=== PATIENT | male | born 1955 | race Caucasian/White ===

== ENCOUNTER 2017-07-06 16:54 | Emergency (ER) | payer OTHER ==
[2017-07-06] MEDS ORDERED: Aspirin TAB* 325 MG PO ONE (18:19)
[2017-07-06] MEDS ORDERED: Nitroglycerin TAB 0.4 MG* 0.4 MG TAB SL ONE (18:20)
[2017-07-06] MEDS ORDERED: Albuterol/Ipratropium NEB.SOL* Albuterol 2.5 MG/Ipratropium 0.5 MG 3 ML INH ONE (18:20)
[2017-07-06] MEDS ORDERED: methylPREDNISolone 125 MG* 2 ML VIAL IV ONE (18:20)
--- NOTE | 2017-07-06 19:10 | RAD ---
INDICATION: Cough. LEFT side chest pain. Just finished antibiotics for bronchitis and early pneumonia. COMPARISON: January 19, 2005 TECHNIQUE: Dual energy PA and routine lateral views of the chest were obtained. REPORT: Both diffuse mild prominence of the interstitial markings and patchy rarefaction of the mid to upper lung zone interstitial markings. No focal pulmonary lesion, compelling alveolar consolidation, pleural effusion, pneumothorax. The heart, pulmonary vasculature, and mediastinal contours are unremarkable. No LEFT rib fracture evident. IMPRESSION: Stigmata of potential chronic obstructive pulmonary disease and emphysema. No acute cardiopulmonary process evident.
[2017-07-06 20:02] LABS: Hematocrit 38 % (42-52); Mean Corpuscular HGB Conc 34 g/dl (31-36); Mean Corpuscular Hemoglobin 34 pg (27-31); Mean Corpuscular Volume 101 fL (80-94); Mean Platelet Volume 7 um3 (7.4-10.4); Red Blood Count 3.82 10^6/ul (4.0-5.4); Red Cell Distribution Width 13 % (10.5-15); White Blood Count 10.1 10^3/ul (3.5-10.8)
[2017-07-06 20:19] LABS: Albumin 3.9 g/dL (3.2-5.2); BUN/Creatinine Ratio 14.4 (8-20); Calcium 9.5 mg/dL (8.6-10.3); EGFR African American 93.7 (>60); EGFR Non-African American 72.8 (>60); Globulin 3.4 g/dL (2-4); Potassium 3.9 mmol/L (3.5-5.0); Total Bilirubin 0.5 mg/dL (0.2-1.0); Total Protein 7.3 g/dL (6.4-8.9)
[2017-07-06] MEDS ORDERED: Iohexol 350* (CONTRAST) 500 ML MDV IV ONE (20:42)
--- NOTE | 2017-07-06 21:50 | RAD ---
INDICATION: Chest pain, shortness of breath. Elevated d-dimer. COMPARISON: July 06, 2017 chest radiograph. TECHNIQUE: Multidetector CT images were obtained from the lung apices to the upper abdomen with 84 mL Omnipaque 350 IV contrast. Pulmonary angiogram protocol. Multiplanar reformation including with maximum intensity projection. REPORT: Mild bilateral mid to lower lung zone patchy consolidation most confluent at the anterior and medial basilar segments of the RIGHT lower lobe. Negative for pleural effusions. Negative for pneumothorax. 1.3 cm short axis diameter mildly enlarged subcarinal lymph node. Negative for cardiomegaly. Physiologic small volume of pericardial fluid. Normal diameter thoracic aorta without appreciable atherosclerotic plaque or evidence for dissection. Respiratory motion artifact mildly degrades diagnostic quality of the CT pulmonary angiogram. Nonetheless no compelling filling defects are identified from the main through the segmental and subsegmental pulmonary arteries to indicate pulmonary embolism. Unremarkable Limited images through the upper abdomen. Negative for suspicious thoracic osseous lesions. IMPRESSION: 1. No evidence for pulmonary embolism. 2. Bronchopneumonia. Negative for pleural effusions. 3. Mildly enlarged subcarinal lymph node may be reactive.
[2017-07-07 03:28] VITALS: BP 137/81
--- NOTE | 2017-07-11 12:02 | ED ---
Christiano Brand Alfonso scribed for Eddi Buckley MD on 07/06/17 at 1817 . Shortness of Breath - HPI Summary HPI Summary: This patient is a 61 year old M presenting to [facility] with a chief complaint of SOB since 2 days ago. The patient rates the pain 0/10 in severity. Symptoms aggravated by deep breaths. Symptoms alleviated by nothing. Patient reports CP ( left sided tightness since 1000 today), productive coughing (dark yellow phlegm and worse at night), body aches, weight loss, insomnia, headache, and tiredness. He sleeps on 3 large pillows each night. He recently completed z-pierce for "bronchitis and early pneumonia" and returned to work today. - History of Current Complaint Chief Complaint: EDShortnessOfBreath Time Seen by Provider: 07/06/17 18:09 Hx Obtained From: Patient Onset/Duration: Sudden Onset, Lasting Days - 2, Still Present Timing: Constant Current Severity: Moderate Aggrevating Factors: Deep Breaths Alleviating Factors: Nothing Associated Signs & Symptoms: Cough (Productive), Chest Pain w/Cough - Allergy/Home Medications Allergies/Adverse Reactions: Allergies Allergy/AdvReac Type Severity Reaction Status Date / Time Levofloxacin [From Levaquin] Allergy Rash Verified 08/28/15 08:45 Moxifloxacin [From Avelox] Allergy Rash And Verified 08/28/15 08:45 Itching PMH/Surg Hx/FS Hx/Imm Hx Cardiovascular History: Denies: Hx Pacemaker/ICD Sensory History: Denies: Hx Hearing Aid Opthamlomology History: Denies: Hx Legally Blind Psychiatric History: Denies: Hx Panic Disorder - Cancer History Cancer Type, Location and Year: MELANOMA REMOVED FROM LEFT SIDE OF FACE, BACK AND CHEST 09/14 - Surgical History Surgery Procedure, Year, and Place: wisdom teeth, nose sinus surgeries, bilateral hip replacements 2010 and 2012,thumb surgery 20 yrs ago,hernia repair 5 yrs ago Infectious Disease History: Denies: Traveled Outside the [place] in Last 30 Days - Family History Known Family History: Positive: Cardiac Disease - Social History Alcohol Use: None Substance Use Type: Reports: None Smoking Status (MU): Former Smoker - Quit approx. 10 years ago. Review of Systems Negative: Fever, Chills Negative: Erythema Negative: Sore Throat Positive: Chest Pain Positive: Shortness Of Breath, Cough Negative: Abdominal Pain, Vomiting, Nausea Negative: dysuria, hematuria Positive: Myalgia, Other - body aches, weight loss. Negative: Edema Negative: Rash Neurological: Other - insomnia, headache, and tiredness; negative dizziness All Other Systems Reviewed And Are Negative: Yes Physical Exam Triage Information Reviewed: Yes Vital Signs On Initial Exam: Initial Vitals Temp Pulse Resp BP Pulse Ox 97.1 F 88 20 128/90 98 07/06/17 17:04 07/06/17 17:04 07/06/17 17:04 07/06/17 17:04 07/06/17 17:04 Vital Signs Reviewed: Yes Appearance: Positive: Well-Appearing, No Pain Distress, Well-Nourished Skin: Positive: Warm, Dry Eyes: Positive: Conjunctiva Clear ENT: Positive: Normal ENT inspection Neck: Positive: Other: - Musculoskeletal ROM normal neck. (-) JVD, (-) Stridor, (-) Tracheal deviation Lymph: (-) Cervical adenopathy Respiratory/Lung Sounds: Positive: Other - Crackles bibasilar. Effort normal. (- ) Respiratory distress. Cardiovascular: Positive: Other - Rhythm regular, rate normal, Heart sounds normal; Intact distal pulses; The pedal pulses are 2+ and symmetric. Radial pulses are 2+ and symmetric. (-) Murmur Abdomen Description: Positive: Other: - Soft, (-) Tenderness, (-) Distension, (- ) Guarding, (-) Rebound Musculoskeletal: Positive: Other - No reproducible chest tenderness. Negative: Edema Left, Edema Right Neurological: Positive: Alert, Oriented to Person Place, Time Psychiatric: Positive: Affect/Mood Appropriate Diagnostics - Vital Signs Vital Signs Temp Pulse Resp BP Pulse Ox 07/06/17 17:04 97.1 F 88 20 128/90 98 - Laboratory Result Diagrams: 07/06/17 19:50 07/06/17 19:50 Lab Statement: Any lab studies that have been ordered have been reviewed, and results considered in the medical decision making process. - Radiology CXR Radiology Interpretation Completed By: Radiologist - Stigmata of potential chronic obstructive pulmonary disease and emphysema. No acute cardiopulmonary process evident. ED physician has reviewed this radiology report and agrees. - CT CTA Chest CT Interpretation Completed By: Radiologist - 1. No evidence for pulmonary embolism. 2. Bronchopneumonia. Negative for pleural effusions. 3. Mildly enlarged subcarinal lymph node may be reactive. ED physician has reviewed this radiology report and agrees. - EKG 1722 Cardiac Rate: NL - BPM 74 EKG Rhythm: Sinus Rhythm EKG Interpretation: No STEMI Re-Evaluation - Re-Evaluation First Eval Re-Evaluation Time: 22:14 Change: Improved Comment: Chest pain resolved. Lungs clear. Course/Dx - Course Assessment/Plan: This patient is a 61 year old M presenting to [facility] with a chief complaint of SOB since 2 days ago. The patient rates the pain 0/10 in severity. Symptoms aggravated by deep breaths. Symptoms alleviated by nothing. Patient reports CP (left sided tightness since 1000 today), productive coughing (dark yellow phlegm and worse at night), body aches, weight loss, insomnia, headache, and tiredness. He sleeps on 3 large pillows each night. He recently completed z-pierce for "bronchitis and early pneumonia" and returned to work today. An EKG reveals NSR. CXR reveals Stigmata of potential chronic obstructive pulmonary disease and emphysema. No acute cardiopulmonary process evident. ED physician has reviewed this radiology report and agrees. Patient will be discharged with prescriptions and follow up from PCP. The patient is agreeable with this plan. - Diagnoses Provider Diagnoses: Bronchitis, Chest wall pain Discharge - Discharge Plan Condition: Stable Disposition: HOME Prescriptions: Albuterol HFA INHALER* [Ventolin HFA Inhaler*] 1 - 2 puff INH Q4H PRN #1 mdi PRN Reason: Cough guaiFENesin/CODIEN 100MG-10MG* [Robitussin AC 100Mg-10Mg*] 5 - 10 ml PO BEDTIME PRN #50 ml MDD 10 PRN Reason: Cough predniSONE TAB* [Deltasone TAB*] 50 mg PO DAILY #5 tab Patient Education Materials: Acute Bronchitis (ED), Chest Wall Pain (ED) Referrals: Neyda Friedman MD [Primary Care Provider] - 3 Days The documentation as recorded by the Christiano rodas Alfonso accurately reflects the service I personally performed and the decisions made by , Eddi Buckley MD.
== END 2017-07-07 00:30 | disposition home or self-care (01) ==
LOC: ED 16:54
DX: R07.9 Chest pain, unspecified (principal); R05 Cough; R63.4 Abnormal weight loss; Z87.891 Personal history of nicotine dependence; J40 Bronchitis, not specified as acute or chronic; R07.89 Other chest pain
CPT/HCPCS: 36415; 71020; 71275; 80053; 83605; 84484; 85025; 85379; 87040; 93005; 94640; 96374; 99283; A9270-GY; J2930; Q9967

== ENCOUNTER 2018-05-21 10:02 | Emergency (ER) | payer OTHER ==
[2018-05-21] MEDS ORDERED: NS 0.9% 1000 ML* 1,000 ML IV ONE (10:27)
[2018-05-21] MEDS ORDERED: Meclizine TAB* 12.5 MG PO ONE (10:27)
[2018-05-21 10:41] LABS: ABS Basophils 0 10^3/ul (0-0.2); ABS Eosinophils 0.3 10^3/ul (0-0.6); ABS Lymphocytes 1.2 10^3/ul (1.0-4.8); ABS Monocytes 0.3 10^3/ul (0-0.8); ABS Neutrophils 4.1 10^3/ul (1.5-7.7); ABS Nucleated RBC 0 10^3/ul; Eosinophil % 4.5 % (0-6); Hematocrit 40 % (42-52); Hemoglobin 13.7 g/dl (14.0-18.0); Lymphocyte % 19.8 % (25-47); Mean Corpuscular HGB Conc 34 g/dl (31-36); Mean Corpuscular Hemoglobin 35 pg (27-31); Mean Corpuscular Volume 100 fL (80-94); Mean Platelet Volume 7.5 um3 (7.4-10.4); Nucleated Red Blood Cells % 0; Platelet Count 221 10^3/ul (150-450); Red Blood Count 3.96 10^6/ul (4.00-5.40); Red Cell Distribution Width 14 % (10.5-15); White Blood Count 5.8 10^3/ul (3.5-10.8)
[2018-05-21 10:58] LABS: EGFR Non-African American 82.6 (>60)
--- NOTE | 2018-05-21 11:13 | ED ---
Dizziness - HPI Summary HPI Summary: This is clark Yusuf documenting for attending Medardo Soto MD. Pt is a 62 y/o male sent from for HTN who presents to [facility] c/o dizziness since yesterday. He states he was straining his eyes at work, which made him dizzy and have double vision. Pt states he was off-balance, couldnt walk straight, and had difficulty driving home. This morning, he woke up with a headache and worsened dizziness. Pt also c/o recent constipation. He denies any CP, SOB, N/V/ D, fever, or chills. PMHx migraines, but states that this is not a migraine. He denies any recent falls, HTN, DM, or HLD. Pt is a former smoker, and consumes alcohol occasionally. - History Of Current Complaint Chief Complaint: EDDizziness Stated Complaint: DIZZINESS,HIGH BP-SENT / STAR Hx Obtained From: Patient Onset/Duration: Still Present Timing: Days - Yesterday Character: Lightheaded, Dizzy Aggravating Factor(s): Other - Eye strain Alleviating Factor(s): Nothing Associated Signs And Symptoms: Positive: Inability to Walk, Other: - Diplopia. Negative: Nausea, Vomiting, Diarrhea, Chest Pain, SOB, Fever, Chills Related History: Similar Episode/Dx as - Migraine - Allergies/Home Medications Allergies/Adverse Reactions: Allergies Allergy/AdvReac Type Severity Reaction Status Date / Time MS Levofloxacin Allergy Rash Verified 08/28/15 08:45 [From Levaquin] MS Moxifloxacin [From Avelox] Allergy Rash And Verified 08/28/15 08:45 Itching PMH/Surg Hx/FS Hx/Imm Hx Cardiovascular History: Denies: Hx Pacemaker/ICD Respiratory History: Denies: Hx Asthma, Hx Chronic Obstructive Pulmonary Disease (COPD) - has had bronchitis before though GI History: Reports: Other GI Disorders - Hital Hernia Musculoskeletal History: Reports: Hx Arthritis Sensory History: Denies: Hx Legally Blind, Hx Hearing Aid Opthamlomology History: Denies: Hx Legally Blind Neurological History: Reports: Hx Migraine Psychiatric History: Denies: Hx Panic Disorder - Cancer History Cancer Type, Location and Year: MELANOMA REMOVED FROM LEFT SIDE OF FACE, BACK AND CHEST 09/14 - Surgical History Surgery Procedure, Year, and Place: wisdom teeth, nose sinus surgeries, bilateral hip replacements 2011 and 2012, thumb surgery 20 yrs ago,hernia repair 5 yrs ago Infectious Disease History: No Infectious Disease History: Denies: Traveled Outside the [place] in Last 30 Days - Family History Known Family History: Positive: Cardiac Disease, Other - CA - prostate, skin - Social History Alcohol Use: Occasionally Substance Use Type: Reports: None Smoking Status (MU): Former Smoker Review of Systems Negative: Fever, Chills Positive: Diplopia Negative: Chest Pain Negative: Shortness Of Breath Negative: Vomiting, Diarrhea, Nausea Neurological: Other - Dizziness, difficulty walking Positive: Headache All Other Systems Reviewed And Are Negative: Yes Physical Exam - Summary Physical Exam Summary: VITAL SIGNS: Reviewed. GENERAL: Patient is a well-developed and nourished MALE who is lying comfortable in the stretcher. Patient is not in any acute respiratory distress. HEAD AND FACE: No signs of trauma. No ecchymosis, hematomas or skull depressions. No sinus tenderness. EYES: PERRLA, EOMI x 2, No injected conjunctiva, no nystagmus. EARS: Hearing grossly intact. Ear canals and tympanic membranes are within normal limits. MOUTH: Oropharynx within normal limits. NECK: Supple, trachea is midline, no adenopathy, no JVD, no carotid bruit, no c- spine tenderness, neck with full ROM. CHEST: Symmetric, no tenderness at palpation LUNGS: Clear to auscultation bilaterally. No wheezing or crackles. CVS: Regular rate and rhythm, S1 and S2 present, no murmurs or gallops appreciated. ABDOMEN: Soft, non-tender. No signs of distention. No rebound no guarding, and no masses palpated. Bowel sounds are normal. EXTREMITIES: FROM in all major joints, no edema, no cyanosis or clubbing. NEURO: Alert and oriented x 3. No acute neurological deficits. Speech is normal and follows commands. SKIN: Dry and warm GCS: 15 Triage Information Reviewed: Yes Vital Signs On Initial Exam: Initial Vitals Temp Pulse Resp BP Pulse Ox 97.3 F 52 14 178/113 100 05/21/18 10:12 05/21/18 10:12 05/21/18 10:12 05/21/18 10:12 05/21/18 10:12 Vital Signs Reviewed: Yes Diagnostics - Vital Signs Vital Signs Temp Pulse Resp BP Pulse Ox 05/21/18 10:41 70 149/94 05/21/18 10:40 70 21 149/94 97 05/21/18 10:39 57 20 161/96 96 05/21/18 10:38 51 17 141/94 97 05/21/18 10:32 48 19 162/97 98 05/21/18 10:31 26 05/21/18 10:12 97.3 F 52 14 178/113 100 - Laboratory Lab Results: Lab Results 05/21/18 05/21/18 05/21/18 Range/Units 10:29 10:29 10:29 WBC 5.8 (3.5-10.8) 10^3/ul RBC 3.96 L (4.00-5.40) 10^6/ul Hgb 13.7 L (14.0-18.0) g/dl Hct 40 L (42-52) % MCV 100 H (80-94) fL MCH 35 H (27-31) pg MCHC 34 (31-36) g/dl RDW 14 (10.5-15) % Plt Count 221 (150-450) 10^3/ul MPV 7.5 (7.4-10.4) um3 Neut % (Auto) 69.6 (38-83) % Lymph % (Auto) 19.8 L (25-47) % Coos % (Auto) 5.5 (0-7) % Eos % (Auto) 4.5 (0-6) % Baso % (Auto) 0.6 (0-2) % Absolute Neuts (auto) 4.1 (1.5-7.7) 10^3/ul Absolute Lymphs (auto) 1.2 (1.0-4.8) 10^3/ul Absolute Monos (auto) 0.3 (0-0.8) 10^3/ul Absolute Eos (auto) 0.3 (0-0.6) 10^3/ul Absolute Basos (auto) 0 (0-0.2) 10^3/ul Absolute Nucleated RBC 0 10^3/ul Nucleated RBC % 0 Sodium 138 (135-145) mmol/L Potassium 4.7 (3.5-5.0) mmol/L Chloride 108 (101-111) mmol/L Carbon Dioxide 26 (22-32) mmol/L Anion Gap 4 (2-11) mmol/L BUN 15 (6-24) mg/dL Creatinine 0.93 (0.67-1.17) mg/dL Est GFR ( Amer) 99.9 (>60) Est GFR (Non-Af Amer) 82.6 (>60) BUN/Creatinine Ratio 16.1 (8-20) Glucose 81 (70-100) mg/dL Lactic Acid 0.5 (0.5-2.0) mmol/L Calcium 9.0 (8.6-10.3) mg/dL Magnesium 2.1 (1.9-2.7) mg/dL Total Bilirubin 0.60 (0.2-1.0) mg/dL AST 22 (13-39) U/L ALT 18 (7-52) U/L Alkaline Phosphatase 76 (34-104) U/L Total Creatine Kinase 87 (10-223) U/L Troponin I 0.01 (<0.04) ng/mL C-Reactive Protein 12.58 H (<8.01) mg/L B-Natriuretic Peptide ( - 100) pg/mL Total Protein 6.9 (6.4-8.9) g/dL Albumin 4.1 (3.2-5.2) g/dL Globulin 2.8 (2-4) g/dL Albumin/Globulin Ratio 1.5 (1-3) TSH Pending 05/21/18 Range/Units 10:29 WBC (3.5-10.8) 10^3/ul RBC (4.00-5.40) 10^6/ul Hgb (14.0-18.0) g/dl Hct (42-52) % MCV (80-94) fL MCH (27-31) pg MCHC (31-36) g/dl RDW (10.5-15) % Plt Count (150-450) 10^3/ul MPV (7.4-10.4) um3 Neut % (Auto) (38-83) % Lymph % (Auto) (25-47) % Coos % (Auto) (0-7) % Eos % (Auto) (0-6) % Baso % (Auto) (0-2) % Absolute Neuts (auto) (1.5-7.7) 10^3/ul Absolute Lymphs (auto) (1.0-4.8) 10^3/ul Absolute Monos (auto) (0-0.8) 10^3/ul Absolute Eos (auto) (0-0.6) 10^3/ul Absolute Basos (auto) (0-0.2) 10^3/ul Absolute Nucleated RBC 10^3/ul Nucleated RBC % Sodium (135-145) mmol/L Potassium (3.5-5.0) mmol/L Chloride (101-111) mmol/L Carbon Dioxide (22-32) mmol/L Anion Gap (2-11) mmol/L BUN (6-24) mg/dL Creatinine (0.67-1.17) mg/dL Est GFR ( Amer) (>60) Est GFR (Non-Af Amer) (>60) BUN/Creatinine Ratio (8-20) Glucose (70-100) mg/dL Lactic Acid (0.5-2.0) mmol/L Calcium (8.6-10.3) mg/dL Magnesium (1.9-2.7) mg/dL Total Bilirubin (0.2-1.0) mg/dL AST (13-39) U/L ALT (7-52) U/L Alkaline Phosphatase (34-104) U/L Total Creatine Kinase (10-223) U/L Troponin I (<0.04) ng/mL C-Reactive Protein (<8.01) mg/L B-Natriuretic Peptide 48 ( - 100) pg/mL Total Protein (6.4-8.9) g/dL Albumin (3.2-5.2) g/dL Globulin (2-4) g/dL Albumin/Globulin Ratio (1-3) TSH Result Diagrams: 05/21/18 10:29 05/21/18 10:29 Lab Statement: Any lab studies that have been ordered have been reviewed, and results considered in the medical decision making process. - Radiology CXR Xray Interpretation: No Acute Changes - 10:27 No evidence for acute intrathoracic disease. ED physician reviewed radiology report. Radiology Interpretation Completed By: Radiologist - CT Brain CT CT Interpretation: Positive (See Comments) - 10:27 Mild involutional change and stigmata of chronic small vessel ischemic disease. No acute intracranial process evident. ED physician reviewed radiology report. CT Interpretation Completed By: Radiologist - EKG 11:22 Cardiac Rate: Bradycardia - 55 bpm EKG Rhythm: Sinus Rhythm ST Segment: Normal Dizzy Course/Dx - Course Assessment/Plan: Patient is a 62-year-old male who presents to the emergency department with a chief complaint of having dizziness. The patient denying any chest pain shortness of breath or palpitations. Blood test results without any significant abnormality except for an a slight normochromic normocytic anemia. Urinalysis is negative for UTI. Chest x-ray impression: No acute pathology. Head CT impression: No acute intracranial pathology. In the ED course the patient was given IV fluids and meclizine for the dizziness and the symptoms have improved. He multiple reexaminations the no exam is completely intact and has no acute neurological focal deficits. Patient was observed for a couple hours in the ED and the symptoms have not returned. Orthostatics male signs shows that the patient has an increased blood pressure however the patient does have any history of hypertension. Blood pressure is 138/91. The patient will be discharged to see the primary care physician to repeat blood pressures on further workup and management. I discussed all the findings and test results with the patient and the need to follow-up with PCP. Patient will be discharged home with a prescription for meclizine. All concerns were addressed and there is no further questions. Patient is hemodynamically stable alert and oriented 3. - Diagnoses Provider Diagnoses: Vertigo Discharge - Sign-Out/Discharge Documenting (check all that apply): Patient Departure - Discharge - Discharge Plan Condition: Stable Disposition: HOME Prescriptions: Meclizine TAB* [Antivert 12.5 TAB*] 25 mg PO TID PRN #30 tab PRN Reason: Dizziness Patient Education Materials: Vertigo (ED) Referrals: Neyda Friedman MD [Primary Care Provider] - 3 Days Additional Instructions: FOLLOW UP WITH YOUR PRIMARY CARE PROVIDER WITHIN ONE WEEK FOR HIGH BLOOD PRESSURE NOTED TODAY. RETURN TO ED FOR ANY WORSENING OR NEW SYMPTOMS. - Billing Disposition and Condition Condition: STABLE Disposition: Home
--- NOTE | 2018-05-21 11:18 | RAD ---
Indication: Dizziness, double vision. History of melanoma in 2014. Comparison: December 27, 2012 MRI. Technique: Noncontrast CT vertex of skull through foramen magnum. Report: Mild prominence of the cerebral sulci. Unremarkable ventricles and basal cisterns. Decreased density in the periventricular and subcortical white matter while non-specific is most likely due to chronic microangiopathy. Negative for de matter white matter obscuration, intra or extra-axial hemorrhage, or mass effect. Unremarkable orbital contents. No suspicious calvarial or skull base lesions. Grossly clear visualized paranasal sinuses and mastoid air spaces. Mild nonspecific soft tissue density at the RIGHT para midline parietal vertex scalp is unchanged from the 2013 exam without concern. IMPRESSION: #. Mild involutional change and stigmata of chronic small vessel ischemic disease. #. No acute intracranial process evident.
[2018-05-21 11:47] LABS: Urine Appearance Clear; Urine Blood Negative (Negative); Urine Color Straw; Urine Ketones Negative (Negative); Urine Protein Negative (Negative); Urine Specific Gravity 1.004 (1.010-1.030); Urine Urobilinogen Negative (Negative)
--- NOTE | 2018-05-21 12:21 | RAD ---
INDICATION: Dizziness, vertigo. Previous bronchitis. COMPARISON: July 06, 2017 CT TECHNIQUE: Dual energy PA and routine lateral views of the chest were obtained. REPORT: Clear lungs and pleural spaces. Negative for pneumothorax. The heart, pulmonary vasculature, and mediastinal contours are unremarkable. Unremarkable osseous structures and soft tissue contours. IMPRESSION: #. No evidence for acute intrathoracic disease.
[2018-05-21 12:38] VITALS: BP 153/96
== END 2018-05-21 13:49 | disposition home or self-care (01) ==
LOC: ED 10:02
DX: R42 Dizziness and giddiness (principal); R00.1 Bradycardia, unspecified; Z87.891 Personal history of nicotine dependence; Z88.8 Allergy status to other drugs, medicaments and biological substances
CPT/HCPCS: 36415; 70450; 71046; 80053; 81003; 82550; 83605; 83735; 83880; 84443; 84484; 85025; 86140; 93005; 99284; A9270-GY

== ENCOUNTER 2019-01-14 14:11 | Emergency (ER) | payer OTHER ==
[2019-01-14] MEDS ORDERED: NS 0.9% 1000 ML** 1,000 ML IV ONE (14:30)
--- NOTE | 2019-01-14 14:35 | ED ---
GI/ HPI - HPI Summary HPI Summary: This patient is a 63 year old M presenting to [facility] upon referral from Dr. Mondragon with a chief complaint of sudden onset left flank pain since 11:30. Per triage note the patient reports that pain radiates to his left abdomen. The patient rates the pain 6/10 in severity. Symptoms aggravated by nothing. Symptoms alleviated by nothing. Patient reports decreased urination, burning with urination and nausea. Patient denies fever, chills, or hematuria. Patient states he thinks he has a kidney stone and that his kidney is blocked. Patient reports that he spoke with and was advised to use a heating pad and to take ibuprofen and if the pain did not alleviate he should come to [facility] and receive an US. - History of Current Complaint Chief Complaint: EDFlankPain Time Seen by Provider: 01/14/19 14:24 Stated Complaint: BELIEVE I HAVE A KIDNEY STONE ON LEFT SIDE PER PT Hx Obtained From: Patient Onset/Duration: Started Hours Ago, Atraumatic, Still Present Timing: Constant Severity: Mild Current Severity: Mild Pain Intensity: 6 Location of Pain: Flank - left Pain Radiates to: LLQ - left abdomen Associated Signs and Symptoms: Positive: Nausea, Dysuria, Flank Pain - left, Abdominal Pain - left sided abd pain. Negative: Fever, Chills Aggravating Factor(s): Nothing Alleviating Factor(s): Nothing - Allergy/Home Medications Allergies/Adverse Reactions: Allergies Allergy/AdvReac Type Severity Reaction Status Date / Time levofloxacin [From Levaquin] Allergy Rash Verified 01/14/19 14:23 moxifloxacin [From Avelox] Allergy Rash Verified 01/14/19 14:23 PMH/Surg Hx/FS Hx/Imm Hx Cardiovascular History: Denies: Hx Pacemaker/ICD Respiratory History: Denies: Hx Asthma, Hx Chronic Obstructive Pulmonary Disease (COPD) - has had bronchitis before though GI History: Reports: Other GI Disorders - Hital Hernia History: Reports: Hx Kidney Stones Musculoskeletal History: Reports: Hx Arthritis Sensory History: Denies: Hx Legally Blind, Hx Hearing Aid Opthamlomology History: Denies: Hx Legally Blind Neurological History: Reports: Hx Migraine Psychiatric History: Denies: Hx Panic Disorder - Cancer History Cancer Type, Location and Year: MELANOMA REMOVED FROM LEFT SIDE OF FACE, BACK AND CHEST 09/14 - Surgical History Surgery Procedure, Year, and Place: wisdom teeth, nose sinus surgeries, bilateral hip replacements 2010 and 2012, thumb surgery 20 yrs ago,hernia repair 5 yrs ago Infectious Disease History: No Infectious Disease History: Denies: Traveled Outside the [place] in Last 30 Days - Family History Known Family History: Positive: Cardiac Disease, Other - CA - prostate, skin - Social History Alcohol Use: Occasionally Substance Use Type: Reports: None Smoking Status (MU): Former Smoker Review of Systems Negative: Fever, Chills Negative: Epistaxis Negative: Cough Positive: Abdominal Pain - left sided, Nausea Positive: burning, dysuria, flank pain - left, other - decreased urination. Negative: hematuria All Other Systems Reviewed And Are Negative: Yes Physical Exam - Summary Physical Exam Summary: VITAL SIGNS: Reviewed. GENERAL: Patient is a well-developed and nourished male who is lying comfortable in the stretcher. Patient is not in any acute respiratory distress. HEAD AND FACE: Normocephalic and atraumatic. EYES: PERRLA, EOMI x 2, No injected conjunctiva. EARS: Hearing grossly intact. Ear canals and tympanic membranes are WNL. MOUTH: Oropharynx within normal limits. NECK: Supple, trachea is midline, no adenopathy, no JVD. CHEST: Symmetric, no tenderness at palpation LUNGS: Clear to auscultation bilaterally. No wheezing or crackles. CVS: RRR, S1 and S2 present, no murmurs or gallops appreciated. ABDOMEN: Soft, left CVA tenderness. No signs of distention. Positive bowel sounds. No rebound no guarding, and no masses palpated. No abdominal bruit or pulsations. EXTREMITIES: FROM in all major joints, no edema, no cyanosis or clubbing. NEURO: Alert and oriented x 3. No acute neurological deficits. Speech is normal. SKIN: Dry and warm Triage Information Reviewed: Yes Vital Signs On Initial Exam: Initial Vitals Temp Pulse Resp BP Pulse Ox 97.0 F 63 14 134/59 97 01/14/19 14:18 01/14/19 14:18 01/14/19 14:18 01/14/19 14:18 01/14/19 14:18 Vital Signs Reviewed: Yes Diagnostics - Vital Signs Vital Signs Temp Pulse Resp BP Pulse Ox 01/14/19 14:18 97.0 F 63 14 134/59 97 - Laboratory Result Diagrams: 01/14/19 15:34 01/14/19 15:34 Lab Statement: Any lab studies that have been ordered have been reviewed, and results considered in the medical decision making process. - Radiology Abd XR Radiology Interpretation Completed By: Radiologist Summary of Radiographic Findings: IMPRESSION: 1. No large renal calculus. 2. Moderate multilevel spondylosis. 3. Nonobstructive bowel gas pattern. Dr. Soto has reviewed this report. - EKG 14:39 Cardiac Rate: NL - at 60 bpm EKG Rhythm: Sinus Rhythm ST Segment: Normal Ectopy: None Summary of EKG Findings: Sinus rhythm at 60 bpm with nml axis and no ST elevations. GIGU Course/Dx - Course Assessment/Plan: Patient is a 63-year-old male who presents to the emergency department with a chief complaint of left flank pain. Patient has history of kidney stones. Test results without any significant abnormality except for hemoglobin of 13.2, chloride 112, creatinine 1.24, and total protein was 6.3. Left renal ultrasound impression: Normal appearing left kidney with no hydronephrosis. Bilaterally urinary jets obtained. KUB impression: No large renal calculus. Moderate multilevel spondylolysis. Nonobstructive bowel gas pattern. In the ED course the patient was given Zofran and morphine for the pain and the symptoms improved. I discussed the case with Dr. Mondragon and he recommends to discharge the patient home with a couple Percocets and follow-up at his office. At this point the patient was discharged home with follow-up with Dr. Mondragon. Patient is hemodynamically stable alert and oriented 3. - Diagnoses Provider Diagnoses: Flank pain - Physician Notifications Discussed Care Of Patient With: Rambo Mondragon Time Discussed With Above Provider: 15:40 Instructed by Provider To: Other - Dr. Mondragon recommends to discharge the patient home with a couple Percocets and follow-up at his office. Discharge - Sign-Out/Discharge Documenting (check all that apply): Patient Departure - discharge home Patient Received Moderate/Deep Sedation with Procedure: No - Discharge Plan Condition: Stable Disposition: HOME Prescriptions: oxyCODONE/Acetamin 5/325 MG* [Percocet 5/325 TAB*] 1 tab PO Q6H PRN #12 tab MDD 4 PRN Reason: Pain Patient Education Materials: Flank Pain (ED) Referrals: Neyda Friedman MD [Primary Care Provider] - Rambo Mondragon MD [Medical Doctor] - 2 Days Additional Instructions: Follow up with Dr. Mondragon, urologist, in 2-3 days. Return to the emergency department with any new or worsening symptoms. - Billing Disposition and Condition Condition: STABLE Disposition: Home - Attestation Statements Document Initiated by Scribe: Yes Documenting Scribe: Leigh Ann Yin Provider For Whom Scribe is Documenting (Include Credential): Medardo Soto MD Scribe Attestation: Leigh Ann Brand, scribed for Medardo Soto MD on 01/14/19 at 2006. Scribe Documentation Reviewed: Yes Provider Attestation: The documentation as recorded by the zachibLeigh Ann esquivel accurately reflects the service I personally performed and the decisions made by , Medardo Soto MD Status of Scribe Document: Viewed
[2019-01-14 15:43] LABS: ABS Basophils 0 10^3/ul (0-0.2); ABS Eosinophils 0.1 10^3/ul (0-0.6); ABS Lymphocytes 0.7 10^3/ul (1.0-4.8); ABS Monocytes 0.5 10^3/ul (0-0.8); ABS Neutrophils 7.5 10^3/ul (1.5-7.7); ABS Nucleated RBC 0 10^3/ul; Eosinophil % 0.9 %; Hematocrit 39 % (36-46); Hemoglobin 13.2 g/dL (14.0-18.0); Lymphocyte % 8.5 %; Mean Corpuscular HGB Conc 34 g/dL (31-36); Mean Corpuscular Hemoglobin 35 pg (27-31); Mean Corpuscular Volume 102 fL (80-94); Mean Platelet Volume 7.3 fL (7.4-10.4); Nucleated Red Blood Cells % 0; Platelet Count 249 10^3/uL (150-450); Red Blood Count 3.82 10^6 /uL (4.18-5.48); Red Cell Distribution Width 14 % (10.5-15); White Blood Count 8.8 10^3/uL (3.5-10.8)
[2019-01-14] MEDS ORDERED: Ondansetron INJ* 2 MG/ML VIAL IV ONE (15:51)
[2019-01-14] MEDS ORDERED: Morphine 10 MG/ML VIAL (1 ml) IV ONE (15:51)
[2019-01-14 16:00] LABS: Albumin/Globulin Ratio 1.7 (1-3); BUN/Creatinine Ratio 12.1 (8-20); C Reactive Protein 7.7 mg/L (<8.01); Calcium 8.7 mg/dL (8.6-10.3); EGFR African American 71.5 (>60); EGFR Non-African American 59.1 (>60); Globulin 2.3 g/dL (2-4); Potassium 4.2 mmol/L (3.5-5.0); Total Bilirubin 0.4 mg/dL (0.2-1.0); Total Protein 6.3 g/dL (6.4-8.9)
[2019-01-14 16:12] LABS: Urine Appearance Cloudy; Urine Bacteria Absent (Absent); Urine Bilirubin Negative (Negative); Urine Blood 3+ (Negative); Urine Color Yellow; Urine Glucose 1+(50 mg/dL) (Negative); Urine Ketones Trace (Negative); Urine Nitrite Negative (Negative); Urine Protein 1+(30 mg/dL) (Negative); Urine Red Blood Cell 3+(>10/hpf) (Absent); Urine Specific Gravity 1.024 (1.010-1.030); Urine Urobilinogen Negative (Negative); Urine White Blood Cell Trace(0-5/hpf) (Absent)
[2019-01-14 16:44] VITALS: BP 137/90
== END 2019-01-14 17:05 | disposition home or self-care (01) ==
LOC: ED 14:11
DX: R10.32 Left lower quadrant pain (principal); R30.0 Dysuria; R11.0 Nausea; M47.9 Spondylosis, unspecified; Z88.1 Allergy status to other antibiotic agents; Z96.643 Presence of artificial hip joint, bilateral; Z87.891 Personal history of nicotine dependence
CPT/HCPCS: 36415; 74018; 76775; 80053; 81003; 81015; 83605; 83690; 85025; 86140; 87086; 93005; 96361; 96374; 96375; 99283; J2270; J2405